=== PATIENT | female | born 1995 | race Caucasian/White ===

== ENCOUNTER 2022-01-16 14:52 | Outpatient (CLI) | payer OTHER, SELFPAY ==
--- NOTE | 2022-01-16 15:00 | CRLHL7_ITS ---
For Patients: As a result of the Century Cures Act, medical imaging exams and procedure reports are released immediately into your electronic medical record. You may view this report before your referring provider. If you have questions, please contact your health care provider. INDICATION: Evaluate anatomy. LMP 09/04/2021. COMPARISON: Ob ultrasound 11/20/2021. TECHNIQUE: Real time sanchez scale imaging of the fetus was performed. FINDINGS: A single living fetus is identified in transverse presentation. The placenta is anterior without previa. The fetus demonstrates a regular cardiac rate of 154 beats per minute. Amniotic fluid volume appears normal. Single deepest vertical pocket: 5.7 cm. The cervix is closed and measures 4.2 cm in length on transabdominal images. The adnexa appear unremarkable. The following biometric data were obtained: Biparietal diameter: 4.3 cm/19 weeks 0 days, 46%tile Head circumference: 16.9 cm/19 weeks 4 days, 61%tile Abdominal circumference: 15 cm/20 weeks 2 days, 80%tile Femur length: 3.5 cm/21 weeks 0 days, 94%tile The HC/AC ratio measures: 1.12 range (1.07-1.25) Ultrasound age: 20 weeks 1 day Ultrasound ALIZA: 06/04/2022 Age by LMP: 19 weeks 1 day LMP ALIZA: 06/11/2022 weight estimate: 352 Grams, greater than 97%tile by LMP. On anatomic survey, there is a normal appearance of the cerebral ventricles, cavum septi pellucidi, cisterna magna and cerebellum. The nose, lips, and facial profile appear normal. The cervical, thoracic and lumbar spine are well visualized and appear normal. There is a normal four-chamber heart view and the left and right ventricular outflow tracts appear normal. The diaphragm and stomach appear normal. The kidneys and bladder also appear normal. There is a normal three-vessel cord and cord insertion site. The four extremities appear normal. IMPRESSION: Single, living intrauterine with concordance of clinical and sonographic dating. No intrinsic abnormalities noted on anatomic survey. Estimated weight is 352 grams, this is above the 97th percentile according to LMP. Dictated by Piedad Mcintyre MD @ 01/19/2022 8:31:17 AM (Electronically Signed)
== END 2022-01-16 14:53 | disposition home or self-care (01) ==
LOC: US 14:53
PROVIDERS: PCP Obstetrics & Gynecology; Visit Provider Obstetrics & Gynecology
DX: Z34.92 Encounter for supervision of normal pregnancy, unspecified, second trimester (principal); Z3A.19 19 weeks gestation of pregnancy
CPT/HCPCS: 76805

== ENCOUNTER 2022-03-09 09:22 | Outpatient (CLI) | payer OTHER, SELFPAY ==
[2022-03-11 18:04] LABS: Rapid Plasma Reagin (RPR) Non Reactive (Non Reactive)
== END 2022-03-09 09:23 | disposition home or self-care (01) ==
PROVIDERS: PCP Obstetrics & Gynecology; Visit Provider Obstetrics & Gynecology
DX: O26.899 Other specified pregnancy related conditions, unspecified trimester (principal); Z67.91 Unspecified blood type, Rh negative; Z3A.26 26 weeks gestation of pregnancy
CPT/HCPCS: 86592; 86850

== ENCOUNTER 2022-05-13 12:55 | Outpatient (CLI) | payer OTHER, SELFPAY ==
[2022-05-14 12:47] LABS: Strep B DNA Probe NEGATIVE (Negative)
[2022-05-17 14:55] LABS: Strep B Pen/Amox Allergy No
== END 2022-05-13 12:56 | disposition home or self-care (01) ==
LOC: NFLDREF 12:55
PROVIDERS: PCP Obstetrics & Gynecology; Visit Provider Obstetrics & Gynecology
DX: Z34.93 Encounter for supervision of normal pregnancy, unspecified, third trimester (principal); Z3A.37 37 weeks gestation of pregnancy
CPT/HCPCS: 76816; 87081; 87653

== ENCOUNTER 2022-05-27 13:31 | Outpatient (CLI) | payer OTHER, SELFPAY | END 2022-05-27 13:32 | disposition home or self-care (01) | LOC: NFLDREF 13:32 | PROVIDERS: PCP Obstetrics & Gynecology; Visit Provider Obstetrics & Gynecology | DX: R35.0 Frequency of micturition (principal) | CPT/HCPCS: 87086 ==

== ENCOUNTER 2022-06-04 07:02 | Inpatient (IN) | payer OTHER, SELFPAY ==
[2022-06-04] VITALS (29 sets, daily range): BP systolic 100–129; BP diastolic 58–75; PULSE 76–111; RESP 16; TEMP 36.6–36.9; O2SAT 94–99; BMI 29.5
[2022-06-04] MEDS: LACTATED RINGERS 1000 ML 1,000 ML 125 ML IV (08:00)
[2022-06-04 09:02] LABS: SARS PCR* Negative SARS-CoV-2 (Negative)
[2022-06-04] MEDS: CEFAZOLIN 2 GM in 0.9 % SODIUM CHLORIDE Mini-bag 100 ML IVPB (09:15)
--- NOTE | 2022-06-04 10:25 | PM.OBPRCCS ---
Procedure Pre-op/Post-op diagnoses: Pre-Op/Post-Op Diagnoses Operation Date: 06/04/22 08:45 <No data on this case meets the specified criteria> Procedure Done: Global Procedure Details: Procedures Operation Date: 06/04/22 08:45 Actual Procedure Side Surgeon p Section, Scar Revision Not Applicable Cecelia Shepherd MD Estimated blood loss (mL): 772 Disposition: floor Anesthesia type: TAP block Complications: None. Narrative: PREOPERATIVE DIAGNOSES: 1. Intrauterine at 39 0/7 weeks' gestation. 2. History of prior low transverse section x1, desiring repeat. 3. Closely spaced pregnancies. POSTOPERATIVE DIAGNOSES: 1. Intrauterine at 39 0/7 weeks' gestation. 2. History of prior low transverse section x1, desiring repeat. 3. Closely spaced pregnancies. NAME OF PROCEDURE: Repeat low transverse section. Lysis of adhesions. Scar revision. SURGEON: Joao. ANESTHESIA: Spinal. COMPLICATIONS: None. ESTIMATED BLOOD LOSS: 772 mL. DRAINS: Iniguez to gravity. FINDINGS: Keloid Pfannenstiel scar. Live-born male infant, cephalic presentation, oa position, Apgars 8 and 9 at 1 and 5 minutes respectively. weight 8 lb. Normal appearing uterus, tubes, and ovaries. Extremely thin lower uterine segment through which flowing amniotic fluid and vernix could be visualized. PROCEDURE: After obtaining informed consent, the patient was taken to the operating room where spinal anesthesia was obtained and found to be adequate. She was prepared and draped in the normal sterile fashion in the dorsal supine position with a leftward tilt. A Pfannenstiel skin incision was made with a scalpel in an elliptical fashion surrounding the patient's previous Pfannenstiel scar. The old scar was excised and passed off the field to be discarded. The incision was carried down to the underlying layer of fascia with the Bovie. The fascia was incised in the midline and the incision extended laterally. The superior and inferior aspects of the fascial incision were grasped with Irasema clamps, elevated and the underlying rectus muscles dissected off sharply and with electrocautery. The rectus muscles were densely adherent, so this dissection took additional time. The rectus muscles were then in the midline. The Jose O retractor was then placed into the incision. The adhesions between the bladder and lower uterine segment were taken down sharply with Metzenbaum scissors. The thin lower uterine segment was then incised in a transverse fashion with the scalpel. The uterine incision was extended laterally with bandage scissors and blunt finger fractionation. Membranes were ruptured a pickups, clear amniotic fluid noted. The infant's head was delivered atraumatically, followed by the remainder of the infant's body. The nose and mouth were suctioned with the bulb suction. The cord was doubly clamped and cut, and the infant was handed off the field for evaluation. Cord blood was obtained due to maternal Rh-negative status. The placenta was delivered spontaneously with umbilical cord traction and fundal massage. The uterus was cleared of all clots and debris. The uterine incision was reapproximated in a running locking fashion with a 0 chromic suture. A 2nd layer of the same suture was used to imbricate in horizontal fashion. The gutters were irrigated and suctioned. All instruments and retractors were removed. The anterior peritoneum was reapproximated in a running fashion with a 3-0 Vicryl suture. The subfascial tissues were carefully inspected and hemostasis assured. The fascia was reapproximated in a running fashion with a looped 0 Maxon suture. The subcutaneous tissues were copiously irrigated. Hemostasis was assured. The skin was closed in a subcuticular fashion with 4-0 Monocryl. Steri-Strips were applied across the incision, and a dressing applied. The patient tolerated the procedure well. Sponge, lap, needle, and instrument counts were reported as correct x2. The patient was taken to the recovery room, awake, and in stable condition. She did receive 2 grams of IV Ancef preoperatively.
--- NOTE | 2022-06-04 10:39 | W.PM.NB ---
Nerve Block Nerve Block Time Seen by Provider: 10:30 Date Seen: 06/04/22 Type of block requested by surgeon for post-operative analgesia: TAP Side: bilateral Time out performed: Yes Verification of patient name: Yes Verification of date of : Yes Site marking: site marked Name of person performing procedure: Manuel Continuous monitoring Was continuous monitoring of O2 sat, B/P, alarm security or surveillance monitor, recorded every 15 minutes?: Yes Procedure Checklist: sterile prep, needles and gloves Ultrasound guided. Images saved: Yes Medications given in 5ml increments after negative aspiration: Marcaine %: 0.25 mL: 30 Needle gauge: 20 and Exparel mL: 10 Patient tolerated procedure well: Yes Additional comments: Needle noted adjacent to nerve Block Charges Block Charge (with Pro Fee): TAP Bilateral Use of Ultrasound Machine for Block: Yes- US Guidance/pain block
--- NOTE | 2022-06-04 10:47 | W.ANESCHARGE ---
Anesthesia Charges Start Date/Time Anesthesia Start Date: 06/04/22 Anesthesia Start Time: 09:05 Stop Date/Time Anesthesia Stop Date: 06/04/22 Anesthesia Stop Time: 10:40 Summary Emergency: No
--- NOTE | 2022-06-04 10:47 | W.ANESCHARGE ---
Anesthesia Charges Start Date/Time Anesthesia Start Date: 06/04/22 Anesthesia Start Time: 09:05 Stop Date/Time Anesthesia Stop Date: 06/04/22 Anesthesia Stop Time: 10:40 Summary Emergency: No
[2022-06-04] MEDS: KETOROLAC 30 MG/ML inj IVP ×2 (16:58→23:03)
[2022-06-05 01:00] VITALS: BP 107/70; PULSE 85; RESP 16; TEMP 36.8; O2SAT 97
[2022-06-05 07:00] LABS: Hemoglobin* 13.2 gm/dL (12.0-16.0)
[2022-06-05] MEDS: KETOROLAC 30 MG/ML inj IVP ×3 (07:34→20:01)
--- NOTE | 2022-06-05 07:36 | PM.OBPNCS1 ---
Documented by User: Ada Rao CNM 06/05/22 07:47 OB - PN: A/P Assessment and Plan (1) Status post delivery: Status: Acute (2) Lactating mother: Status: Acute Plan Assessment/Plan G 2 P 2 status post uncomplicated repeat . Lactating Mother 1. ?Continue route PP cares 2. ?. ?May see if desired. 3. ?Anticipate discharge home tomorrow or the following day per pt preference Plan day: 1 Plan: routine postop care OB - PN: Subj Subjective Time Seen by Provider: 07:41 Date Seen: 06/05/22 Interval history: Subjective: Audrey is a 27 y.o. who was admitted [facility] for Repeat Section. ?She had an uncomplicated . ? The patient feels well. ?The pain is well controlled with current medications. ?She has no new complaints. ?She is breast feeding and reports things are going well.? the patient has done well.? Vitals have been stable.? She has remained afebrile.? Has a good appetite, is tolerating a general diet. ?She is has not been up to the bathroom yet, but will be shortly with her RN.? She is passing gas and has not had a bowel movement.? Has Small amount of rubra lochia.?? Patient comments: no complaints and pain well controlled infant status: and doing well feeding status: exclusively OB - PN: Obj Exam Physical Exam: Vital signs: Temp Pulse Resp BP Pulse Ox O2 Del Method 98.3 F 85 16 107/70 97 06/05/22 01:00 06/05/22 01:00 06/05/22 01:00 06/05/22 01:00 06/05/22 01:00 06/05/22 01:00 Narrative: Objective: VSS. ?Afebrile GENERAL APPEARANCE: ?normal affect, alert, no distress MOOD: ?appropriate HEENT: normocephalic, neck supple, full ROM CHEST: ?Symmetrical chest wall movement. ?Normal respiratory effort. ?Clear to auscultation HEART: ?regular rate and rhythm ABDOMEN: ?soft, non-tender. Uterine fundus is firm, 2 below Umbilicus, Midline and is appropriate for the stage of recovery. ?Bowel sounds present. EXTREMITIES: ?normal and no edema SKIN: warm, dry. ?Dressing on, clean/dry/intact ?No signs of infection noted. Urinary Catheter Management: 2-way Urethral: Cath placed during this visit: yes Insertion date: 06/04/22 Insertion time: 09:15 OB - PN: Obj Data Labs Labs: Laboratory Results - last 24 hr 06/04/22 06/04/22 06/04/22 07:50 08:05 08:05 Hgb 14.0 SARS-CoV-2 (PCR) Negative SARS-CoV-2 Blood Type O Negative Antibody Screen POSITIVE 06/05/22 06:44 Hgb 13.2 SARS-CoV-2 (PCR) Blood Type Antibody Screen Documented by User: Ya Almanza CNM 06/05/22 08:58 OB - PN: A/P Assessment and Plan (1) Status post delivery: Status: Acute (2) Lactating mother: Status: Acute OB - PN: Obj Exam Urinary Catheter Management: 2-way Urethral: Cath placed during this visit: yes Urethral indwelling: No
[2022-06-05 07:43] VITALS: BP 123/82; PULSE 82; RESP 16; TEMP 36.9; O2SAT 96
[2022-06-05 13:55] VITALS: BP 118/79; PULSE 84; RESP 16; TEMP 36.9; O2SAT 97
[2022-06-05 16:06] VITALS: BP 104/70; PULSE 84; RESP 14; TEMP 36.9; O2SAT 97
[2022-06-06] MEDS: ACETAMINOPHEN 500 MG TABLET 1000 MG PO ×3 (01:43→14:36)
[2022-06-06 01:55] VITALS: BP 112/74; PULSE 88; RESP 14; TEMP 36.5; O2SAT 98
[2022-06-06] MEDS: IBUPROFEN 600 MG TABLET PO ×3 (03:59→16:09)
[2022-06-06] MEDS: DOCUSATE SODIUM 100 MG CAPSULE PO (07:59)
[2022-06-06 08:00] VITALS: BP 116/74; PULSE 77; RESP 16; TEMP 36.8; O2SAT 97
--- NOTE | 2022-06-06 09:14 | P.DS_ITS ---
DS: Providers Provider Date Seen: 06/06/22 Date of admission: 06/04/22 07:02 Primary care physician: Cecelia Shepherd MD Admitting Clinician: Cecelia Shepherd MD Attending Physician on discharge: Carmella Benitez MD Date of Discharge: 06/06/22 DS: Diagnosis Discharge Diagnosis (1) Status post delivery: Status: Acute (2) Lactating mother: Status: Acute Exam Narrative: Exam Narrative: General: Pleasant, no acute distress Heart: Regular rate and rhythm, no murmur or gallop Lungs: Clear to auscultation bilaterally Abdomen: Soft, nontender, fundus well below umbilicus Lower extremities: No edema or erythema Const: Vital Signs, click to edit/add: Vital Signs - 24 hr 06/05/22 13:55 06/05/22 16:06 06/06/22 01:55 Temperature 98.4 F 98.5 F 97.7 F Pulse Rate [Pulse Oximeter] 84 84 88 Respiratory Rate 16 14 14 Blood Pressure [Ri ght Arm] 118/79 104/70 112/74 Pulse Oximetry 97 97 98 Oxygen Delivery Me thod Room Air Room Air Room Air 06/06/22 08:00 Temperature 98.2 F Pulse Rate [Pulse Oximeter] 77 Respiratory Rate 16 Blood Pressure [Ri ght Arm] 116/74 Pulse Oximetry 97 Oxygen Delivery Me thod Room Air DS: Data Data Completed and Pending Labs on day of discharge: Labs from last 24 hours 06/04/22 06/04/22 18:15 08:05 Antibody Identification No Antibodies Found by ARC Screen Negative OB - DS: Summary Hospital Course Hospital Course: The patient is a 27 year old G 2 P 1-0-0-1 woman at 39 weeks gestation that was admitted to the Center on 06/04/22 for repeat delivery. Ob problem list: 1. Closely spaced pregnancies; delivered 04/07/2021 2. History of delivery Repeat delivery @39 weeks: Scheduling form filled out for 06/04/[address] Shepherd at 7:00 a.m.. 3. 1st OB ultrasound with subchorionic hemorrhage 1.6 x 0.5 x 0.7 cm, umbilical cord cyst 0.3 x 0.3 x 0.4 cm, and possible bilateral pleural effusion. Radi ologist recommended follow up ultrasound at 11-12 weeks with NT measurement as well Follow-up ultrasound done 11/20/2021: NT 1.13 mm, Normal growth (11+5), No evidence of pleural effusions or umbiulical cord cyst. Subchorionic hemorrhage stable or smaller. 4. MaterniT-21: 11/20/21 Negative 5. Scoliosis. 40 degree curve, apex on the right L2 vertebral body per [facility] records in 2019. Patient reports no problems with regional analgesia for for delivery. Patient has requested most recent imaging results be sent. 6. Rh-negative status. She had an uncomplicated repeat delivery with scar revision. She delivered a viable male infant. She is breast feeding without difficulty. the patient has done well. Today, on day 2, she has no complaints. She reports mild cramping, similar to menstrual cramps. She is tolerating regular diet and is passing flatus. She is ambulating and urinating without difficulty. Peripartum Data Procedures: Procedures Operation Date: 06/04/22 08:45 Actual Procedure Side Surgeon p Section, Scar Revision Not Applicable Cecelia Shepherd MD [place] Infant Gender: Male Time Spent with Patient Time attestation: Total time spent providing and/or coordinating discharge services: Discharge Plan Discharge Disposition: Home, Self-Care Date of Admission: 06/04/22 07:02 Attending Provider on Discharge: Carmella Benitez Primary Care Provider: Cecelia Shepherd Condition: Improved Anticipated Discharge Date/Time: 06/06/22 09:17 Discharge Medications: New acetaminophen 500 mg Tablet 1,000 mg PO Q6H PRN (Reason: Pain) Qty: 0 0RF magnesium hydroxide [Milk of Magnesia] 400 mg/5 mL Suspension 30 ml PO Q6H PRN (Reason: Constipation) Qty: 0 0RF docusate sodium 100 mg Capsule 100 mg PO DAILY Qty: 0 0RF ibuprofen 600 mg Tablet 600 mg PO Q6H PRN (Reason: Pain) Qty: 0 0RF oxycodone 5 mg Tablet 5 - 10 mg PO Q4H PRN (Reason: Pain) Qty: 20 0RF Lanolin (HPA) 100 % Cream 1 applic topical Q1H PRNQty: 0 0RF Continued DHA 200 mg capsule 200 mg PO DAILY cholecalciferol (vitamin D3) 25 mcg (1,000 unit) capsule 25 mcg PO QDAY Discharge Orders: Discharge Order (Routine); Ordered 06/06/22 Ordered By: Carmella Benitez Patient Education: OB Over the Counter Medication Information, OB /Breast Feeding Additional Instructions: Discharge instructions were reviewed with the patient including signs and symptoms of infection and home going medications Lifting Restrictions: 20 pounds for 6 weeks No not submerge incision under water X 2 weeks? Nothing vaginally for 6 weeks: no tampons or intercourse Do not drive while taking narcotic pain medication(s) Off Work or School for 8 weeks Symptoms to report to doctor: * Bleeding that saturates more than one pad per hour * Passing clots larger than the size of a golf ball * Pain not relieved by prescribed medication * Fever above 100.4 degrees Fahrenheit * A foul vaginal odor * Difficulty in emotions, mood, and functions * Thoughts of hurting yourself and/or * Painful, reddened area in your breast * Any drainage, redness, or tenderness in your IV/epidural site * Severe headache that doesn't improve after taking medications * Changes in vision, including temporary loss of vision, blurred vision, and/or light sensitivity * Upper abdominal pain (usually under ribs on the right side) * Decrease in urination or painful, frequent urinating * Chest pain * Shortness of breath * Tenderness or pain with redness and/swelling in the calf(s) of your leg Optional 2-week visit: incision check, discuss feeding concerns, review control options and screen for anxiety/depression. 6-week visit for an annual exam. consultation services are available to all mothers and babies for the first year after delivery.? To make an appointment, please call [phone]. Follow Up Appointments: Cecelia Shepherd MD [Primary Care Provider] - Forms: [employer] Info Instructions
[2022-06-06 13:35] VITALS: BP 117/84; PULSE 85; RESP 16; TEMP 36.5; O2SAT 97
== END 2022-06-06 17:20 | disposition home or self-care (01) | DRG 788 ==
PROVIDERS: Admitting Provider Obstetrics & Gynecology; PCP Obstetrics & Gynecology; Visit Provider Obstetrics & Gynecology
PROC: 10D00Z1 Extraction of Products of Conception, Low, Open Approach (ICD-10-PCS; CPT 59514; principal; 2022-06-04 08:45)
DX: O34.211 Maternal care for low transverse scar from previous cesarean delivery (principal); O99.892 Other specified diseases and conditions complicating childbirth; N73.6 Female pelvic peritoneal adhesions (postinfective); Z3A.39 39 weeks gestation of pregnancy; Z37.0 Single live birth
CPT/HCPCS: 01961; 36415; 64488; 76942; 82247; 85018; 85025; 85461; 86850; 86870; 86880; 86900; 86901; 87635; A9270; C9290; J0690; J1885; J2274; J2370; J2405; J2590; J2791; J3490; J7120

== ENCOUNTER 2023-03-18 08:17 | Outpatient (CLI) | payer OTHER, SELFPAY | END 2023-03-18 08:18 | disposition home or self-care (01) | LOC: NFLDREF 08:19 | PROVIDERS: PCP Obstetrics & Gynecology; Visit Provider Advanced Practice Midwife | DX: R39.9 Unspecified symptoms and signs involving the genitourinary system (principal); N89.8 Other specified noninflammatory disorders of vagina | CPT/HCPCS: 87086 ==

== ENCOUNTER 2024-02-01 16:42 | Outpatient (CLI) | payer OTHER, SELFPAY ==
--- OUTSIDE RECORDS SUMMARY | 2024-02-02 07:40 | XMS_ITS | Encounter Summary ---
Author Organization [facility] Address [address] [place] [address] Care Team Providers Care Supervisor Solder Making Name Role Phone Unassigned, Provider Primary Care Provider Unava ilable Encounter Details Date Type Department Care Team (Late st Contact Info) Description 01/10/2024 brian Bustamante [phone] Social History Tobacco Use Types Packs/Day Years Used Date Smoking Tobacco: Never Smokeless Tobacco: Never Sex and Gender Information Value Date Recorded Sex Assigned at Not on file Gender Identity Not on file Sexual Orientation Not on file documented as of this encounter Progress Notes * FAMILY MEDICINEBRIAN PROVIDER - 01/10/2024 4:41 AM CDT Brian Treatment Plan Diagnosis Recurrent Urinary Tract Infection Visit Date January 10, 2024 Audrey Perla Date of : 89 Provider Opal Gibbons, Nurse Practitioner Note From Provider Jacoby Ventura, Thanks for using Brian. See the attached plan. Hope you feel better soon, Ting Treatment Plan Because you have a bacterial infection in your bladder, I sent a prescription for an antibiotic to [facility]. I also listed a few ways to soothe your discomfort and additional self-care tips to get you on the road to feeling better. If your symptoms don't start to improve after 3 days, or if you have questions, select Help to Request a Follow-up and we??l discuss next steps.With recurrent bladder infections, we worry about antibiotic resistance and other more serious conditions. Because of these concerns, if you develop any new infections or symptoms within the next 6 months, we advise you be seen in clinic and obtain a urine culture. If your provider doesn't recommend a long-term prevention plan, we can treat you again after 6 months. Order(s) nitrofurantoin monohyd/m-cryst 100 mg capsule Take 1 capsule by mouth every twelve hours as directed for 5 days Note: Take with food to improve absorption. Refills: None Sent To: [email or web address] [address] [place], [place] [id number] Treatment Plan Self Care Tip Topics What to Do For Your Next UTI Drink Water Avoid Caffeine Warm Packs What to Expect If you follow the recommendations I made on the Treatment tab, your symptoms should start to improve in about 3 days. If your symptoms don't start to improve after 3 days, or if you have questions, select Help to Request a Follow-up and we'll help determine next steps.With recurrent bladder infections, it's important to be seen in clinic for testing to help determine what's causing your symptoms.During the next 6 months, follow up in clinic for any bladder infections or symptoms you experience. Your primary care provider can access and formulate a plan for managing and preventing your recurrent bladder infections. To share notes from your recent [facility] visit with your provider, click Share My Records in your treatment plan. [facility] can provide diagnosis and treatment for future bladder infections provided 6 months have passed since your most recent infection. What to Watch Out For Follow-up in clinic if you experience: ??? Fever higher than 99.9 degrees ??? Shaking or chills ??? Worsening pain with urination ??? Vomiting ??? Severe pain in your back, abdomen or pelvis ??? Extreme fatigue My Conditions, Orders, Allergies as of January 10, 2024 Standard condition list None None Current orders nitrofurantoin monohyd/m-cryst (nitrofurantoin monohyd/m-cryst) Allergies None [facility] Information [facility] We are an online clinic open 04/01. If you have any questions or comments about this visit, please call or email [email or web address]. documented in this encounter Plan of Treatment Not on file documented as of this encounter Visit Diagnoses Diagnosis Urinary tract infection, site not specified documented in this encounter Care Teams Supervisor Solder Making Relationship Specialty Start Date End Date Unassigned, Provider [address] [place] [address] PCP - General 03/17/00 documented as of this encounter
--- OUTSIDE RECORDS SUMMARY | 2024-02-02 07:40 | XMS_ITS | Clinical Summary ---
Author Organization [facility] Address [address], [place] [address] Care Team Providers Care Graduate Student Name Role Phone Unassigned, Provider Primary Care Provider Unava ilable Source Comments You are receiving this document as you are listed as the primary care provider,follow-up provider, or the patient has been referred to you for consultation.This is in compliance with the Medicare and[facility] EHR Incentive Program,which states Providers who transition their patient to another setting of careor provider of care or refers their patient to another provider of care shouldprovide summary care record for each transition of care or referral. [facility] Allergies No known active allergies Medications No known medications Active Problems No known active problems Encounters Date Type Department Care Team Description 01/10/2024 yovany Bustamante [phone] from Last 3 Months Immunizations Name Administration Dates Next Due DTP 1995,1995,1995 DTaP 01/19/2001,12/07/1996 HepB Ped/Adol (0-18 yrs) 1995,1995,1 08/02/1994 Hib (ActHIB) 12/07/1996,1995,1995 ,1995 MMR 01/19/2001,09/05/1996 OPV, Trivalent (Orimune or tOPV) 01/19/2001,11/13,1995,1995 Social History Tobacco Use Types Packs/Day Years Used Date Smoking Tobacco: Never Smokeless Tobacco: Never Sex and Gender Information Value Date Recorded Sex Assigned at Not on file Gender Identity Not on file Sexual Orientation Not on file Last Filed Vital Signs Vital Sign Reading Time Taken Comments Blood Pressure 129/76 03/04/2020 6:15 PM CDT Pulse 95 03/04/2020 6:15 PM CDT Temperature 36.7 ??C (98.1 ??F) 03/04/2020 6:15 PM CD T Respiratory Rate 16 03/04/2020 6:15 PM CDT Oxygen Saturation 97% 03/04/2020 6:36 PM CDT walking Inhaled Oxygen Concentration - - Weight - - Height - - Body Mass Index - - Plan of Treatment Health Maintenance Due Date Last Done Comments Cervical Cancer Screening Due 1995 Hep C Screening (Preventive Services) 1995 MTM Covered 1995 DTaP/Tdap/Td (6 - Tdap) 2006 01/20/20, 12/07/1996, 1995, Additional history exists HIV Screening (Preventive Services) 2011 Adult Preventive Visit 2013 COVID-19 Vaccine ( season) 2023 Influenza (#1) 2024 Zoster/Shingles (1 of 2) 2045 HepB Completed 1995, 01/1996, 1995 Hib Completed 12/07/1996, 09/1995, 1995, Additional history exists IPV (Polio) Completed 01/19/2001, 11/13, 1995, Additional history exists Chlamydia Discontinued 03/30/2013 HPV Vaccine Aged Out No longer eligi ble based on patient's age to complete this topic HepA Aged Out No longer eligi ble based on patient's age to complete this topic MCV4 Aged Out No longer eligi ble based on patient's age to complete this topic Pneumococcal Aged Out No longer eligi ble based on patient's age to complete this topic Care Teams Graduate Student Relationship Specialty Start Date End Date Unassigned, Provider [address] [place] [address] PCP - General 03/17/00
== END 2024-02-01 16:43 | disposition home or self-care (01) ==
LOC: NFLDREF 02-02 07:39
PROVIDERS: Visit Provider Physician Assistant
DX: R30.0 Dysuria (principal)
CPT/HCPCS: 87086; 87186